=== PATIENT | male | born 1960 | race Caucasian/White ===

== ENCOUNTER 2021-05-23 08:44 | Outpatient (CLI) | payer OTHER, SELFPAY ==
[2021-05-23 09:42] LABS: Alanine Aminotransferase 25 U/L (4-50); Albumin Level 4.4 g/dL (3.5-5.1); Alkaline Phosphatase 100 U/L (38-126); Anion Gap 8 mmol/L (8-16); Aspartate Amino Transferase 26 U/L (17-59); Bilirubin,Total 1.6 mg/dL (0.2-1.3); Blood Urea Nitrogen 16 mg/dL (9-20); Calcium 9.5 mg/dL (8.4-10.2); Carbon Dioxide 29 mmol/L (22-30); Chloride 104 mmol/L (98-107); Cholesterol 165 mg/dL (0-200); Estimated Glomerular Filt Rate 56; Glucose 114 mg/dL (75-110); HDL Direct 51 mg/dL; Potassium 4.2 mmol/L (3.4-5.0); Sodium 141 mmol/L (137-145); Triglycerides 85 mg/dL (<150)
[2021-05-23 09:53] LABS: LDL Cholesterol Direct 79 mg/dL
== END 2021-05-23 08:45 | disposition home or self-care (01) ==
LOC: ANHLAB 08:47
PROVIDERS: PCP Family Medicine; Visit Provider Family Medicine
DX: E78.2 Mixed hyperlipidemia (principal); I10 Essential (primary) hypertension
CPT/HCPCS: 36415; 80053; 80061

== ENCOUNTER → 2021-08-21 07:49 | Outpatient (CLI) | payer OTHER, SELFPAY ==
--- NOTE | ~2021-08-21 | MR_ITS ---
EXAMINATION: MR knee RT wo con DATE: 08/21/2021 08:38 INDICATION: Right knee pain, swelling and weakness TECHNIQUE: Magnetic resonance imaging (MRI) of the right knee was performed without intravenous contr ast. Sequences included coronal PD-weighted FSE, coronal PD-weighted FS FSE, sagittal T2-weighted FS E, sagittal PD-weighted FS FSE and axial PD weighted fat saturated FSE. COMPARISON: Radiographs dated 06/26/2021 FINDINGS: Medial compartment: Longitudinal horizontal tear extending to the inferior articular surface of the posterior horn and po sterior body of the medial meniscus. Articular cartilage is normal. Lateral compartment: Radial tear near the posterior root of the lateral meniscus. There is an intact posterior meniscal fe moral ligament of [place]. There is deep chondral ulceration along the posterior aspect of the later al tibial plateau with mild subarticular cystic change and edema posterior medially. Deep chondral fi ssuring without degenerative subchondral changes at the central aspect of the lateral tibial plateau and anterior weightbearing medial femoral condyle. There are small flat central subchondral osteophyt es at the site of full/near full-thickness chondral ulceration at the central weightbearing lateral f emoral condyle as well as along the posterior margin of the lateral femoral condyle. Patellofemoral compartment: Deep chondral ulceration and fissuring with underlying cortical irregularity at the medial patellar f acet, with tiny focus of subarticular edema at the apical ridge and without degenerative subchondral changes at the lateral facet. Extensive chondral ulceration at the trochlear, emplaces full/near full -thickness with small central subchondral osteophytes at the trochlear groove and medial trochlea wit h subarticular edema at the medial aspect of the lateral trochlea. Ligaments and tendons: Anterior and posterior cruciate ligaments are normal. The medial collateral ligament and fibular garrick ateral ligament complex are normal. Moderate-sized enthesophyte and mild tendinopathy at the patellar insertion of the distal quadriceps tendon. Minimal tendinopathy at the proximal and distal patellar tendon. The visualized medial and lateral hamstring tendons as well as the iliotibial band are normal . Fluid: Physiologic amount of fluid in the joint space. No loose osteochondral bodies identified. Osseous/other: Bone alignment is normal. No fracture or pathologic marrow replacing process. IMPRESSION: 1. Medial and lateral meniscal tears. 2. 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 3. Mild distal quadriceps and minimal patellar tendinopathy. Reviewed, dictated and finalized at location B. IMPRESSION: 1. Medial and lateral meniscal tears. 2. 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 3. Mild distal quadriceps and minimal patellar tendinopathy.
== END ==
PROVIDERS: Visit Provider Orthopaedic Surgery
DX: S83.241A Other tear of medial meniscus, current injury, right knee, initial encounter (principal); S83.281A Other tear of lateral meniscus, current injury, right knee, initial encounter; M17.11 Unilateral primary osteoarthritis, right knee; M22.41 Chondromalacia patellae, right knee
CPT/HCPCS: 73721

== ENCOUNTER 2021-09-26 12:32 | Outpatient (CLI) | payer OTHER, SELFPAY ==
--- NOTE | 2021-09-26 12:45 | ECG_ITS ---
Measurements Intervals [place] Rate: 72 P: 24 OH: 181 QRS: -28 QRSD: 97 T: 23 QT: 389 QTc: 428 Interpretive Statements SINUS RHYTHM INCOMPLETE RIGHT BUNDLE BRANCH BLOCK DELAYED PRECORDIAL R/S TRANSITION LOW QRS VOLTAGE IN PRECORDIAL LEADS BASELINE ARTIFACT- I, II, AVR BORDERLINE ECG Electronically Signed On 09-26-2021 19:41:11 [employer]PER[employer] by Aryan Quezada D.O.
== END 2021-09-26 12:33 | disposition home or self-care (01) ==
LOC: ANHSURGERY 12:37
PROVIDERS: PCP Hospitalist; Visit Provider Orthopaedic Surgery
DX: Z01.818 Encounter for other preprocedural examination (principal); I10 Essential (primary) hypertension; I45.10 Unspecified right bundle-branch block
CPT/HCPCS: 93005

== ENCOUNTER 2021-09-27 02:20 | Day surgery (SDC) | payer OTHER, SELFPAY ==
[2021-09-25 09:24] VITALS: BMI 30.5
--- NOTE | 2021-09-25 09:41 | PC.NURSE ---
Report to the Outpatient Waiting Room, entrance under the green pavilion located off [facility], at time 11:00 on date 10/06/21. OR Time: 1:00. - You and your visitor will be asked a series of questions to screen for COVID 19 for your protection. - A mask is required within the hospital. - Only one visitor is allowed at this time. Patient visitors will be guided where to wait when not with patient. Preoperative COVID Testing Requirements: No COVID Test needed if: (proof is required; if not received patient will have Rapid Test prior to entry) - Patient has received COVID Vaccine at least 14 days prior to procedure date or - Patient has positive COVID test result within last 90 days of surgery date. COVID Test needed if above criteria is not met If not COVID vaccinated a COVID test must be conducted within 72 hours of surgery and patient is asked to isolate self from time of testing until procedure. You will go to the [facility] for your COVID testing. The [facility] site is located at the corner of [address] [facility]. You will only be called if COVID results are positive and your surgeon may reschedule your elective surgery date. Patients may have clear liquids (water, carbonated beverages, clear teas, apple juice) until 3 hours prior to surgery with a maximum of 20 ounces. - No food from midnight until time of surgery - Infants may have breast milk until 4 hours before surgery, infant formula 6 hours prior to surgery. - Children will be allowed to drink immediately following surgery. If applicable, please bring a bottle or sippy cup to assist with drinking. Juice, water, soda, and popsicles are readily available. For infants on formula, please bring formula the day of surgery. Pacifiers are allowed. Take the following medications with a SIP of water the morning of surgery: DOXYCYCLINE Medications to discontinue per physician: VITAMINS/SUPPLEMENTS Date to take last dose: 3 DAYS PRE-OP Please no make-up, nail monegasque, hairspray, perfume, deodorant, or body powder the day of surgery. No jewelry (including any body piercings) or valuables the day of surgery, leave them at home. Please take a shower or bath the night before, or the morning of, surgery with an antibacterial soap. Wear comfortable, loose fitting clothing. Children are encouraged to wear pajamas. - Jewelry must be removed prior to entering the operating room. Rings and piercings that are not removed may be cut off. - The hospital will not accept responsibility for valuables. - Please leave all valuables, including medications, at home the day of surgery. If you are going home after surgery, a licensed city route driver must drive you home. - NO public transportation without another adult. - We recommend that an adult stay with you for 24 hours following discharge. - We also recommend that you do not drive, make important decision, drink alcoholic beverages, or take any drugs that were not prescribed by your health care provider for at least 24 hours after your discharge time. For Pediatric surgeries, we recommend two adults accompany the child home (only one inside the building at this time). Follow any additional instructions given to you from your surgeon. Telephone instructions given to LIZBETH HOWELL and asked if any additional questions and then verbalized understanding. Patient advised to call surgeon office or pre surgery nurse liaison [phone] if any additional questions.
[2021-09-27] VITALS (10 sets, daily range): BP systolic 109–137; BP diastolic 67–84; PULSE 58–73; RESP 13–16; TEMP 36.9–37; O2SAT 96–99
--- NOTE | 2021-09-27 07:17 | WPDHPUPDATE1 ---
History and Physical Update Update Date/Time: 09/27/21 07:17 History and Physical has been reviewed, including an updated exam of the patient. There are NO changes in the patient's condition. Risks, benefits, and alternatives have been discussed and questions answered. Patient agrees to proceed with procedure.
[2021-09-27] MEDS: ACETAMINOPHEN 500 MG TABLET 1000 MG PO (11:31)
[2021-09-27] MEDS: LACTATED RINGERS 1,000 ML 30 ML IV CONT (11:32)
[2021-09-27] MEDS: KETOROLAC 15 MG/ML VIAL (*BKC) IV PUSH (11:32)
--- NOTE | 2021-09-27 12:07 | P.PNAN_ITS ---
Anes - Initial Pre Proc Eval Procedure: Operation Date: 09/27/21 13:00 Proposed Procedures p Right Knee Arthroscopic Partial Medial and Lateral Meniscectomy - Twan Mason MD Date/Time: 09/27/21 12:07 Surgeon: Twan Mason MD Pre Op Diagnosis: right knee lateral and medial meniscus tear Patient Data Age: 61 Gender: M Height: 1.78 m Weight: 96 kg Last Vital Signs Temp 36.9 C 09/27/21 11:39 Pulse 73 09/27/21 11:39 Resp 16 09/27/21 11:39 BP 137/74 09/27/21 11:39 Pulse Ox 98 09/27/21 11:39 Allergies Allergy/AdvReac Type Severity Reaction Status Date / Time No Known Allergies Allergy Verified 09/27/21 11:00 Home Medications Medication Instructions Recorded Confirmed Type losartan 50 mg tablet 50 mg PO DAILY #90 tablet 05/21/21 09/27/21 Rx doxycycline hyclate 100 mg tablet 10 mg PO DAILY 06/05/21 09/27/21 History multivitamin 1 tablet PO DAILY 09/25/21 09/27/21 History Patient hx anesthesia problems: none Family hx anesthesia problems: none Results Review: All pre-operative results and documents have been reviewed as part of the pre-operative evaluation. [facility] Past Medical History Medical History Benign essential HTN Cataract Elevated BP without diagnosis of hypertension Mixed hyperlipidemia Multinodular goiter OAB (overactive bladder) Surgical History Surgical History History of cataract extraction (~03/29/20) History of cataract extraction (~01/26/20) History of tonsillectomy Family History Family History Mother Hypertension Family history of elevated blood lipids Father Hypertension Family history of elevated blood lipids Family history of diabetes mellitus in first degree relative Social History Social History Social History: single Smoking status: Never smoker Second hand tobacco smoke exposure: No Alcohol intake: never Substance use: never Substance use type: does not use Living arrangements: alone Gender identity (if verbalized by the patient): Male Sexual Orientation (if Verbalized by the Patient): Straight or Heterosexual Spiritual care concerns: No Anes - Eval Final PreProcedure Day of Procedure 09/27/21 12:07 Patient weight: overweight Heart: regular rate and rhythm Lungs: clear to auscultation Airway: Mallampati scale class II Neurological: alert and oriented Last oral intake: >/= 8 hours ASA classification: II Emergent: no Anesthetic plan: proceed Anesthesia type and monitoring: general LMA and standard monitoring Results Review: All pre-operative results and documents have been reviewed as part of the pre-operative evaluation. Informed Consent: The patient's anesthetic plan and its attendant risks and benefits were discussed with the patient/family/POA. Questions were solicited and answers provided to the satisfaction of the patient/family/POA.
[2021-09-27] MEDS: ceFAZolin 2 GM/D5W 50 ML 2 GM/50 ML BAG IVPB (12:56)
[2021-09-27] MEDS: BUPIVACAINE HCL 0.5% PF 30 ML VIAL INFILTRATE (13:22)
--- NOTE | 2021-09-27 16:56 | P.OP_ITS ---
Procedure Note - Detailed Date of Procedure 09/28/21 Pre-op Diagnosis right knee lateral and medial meniscus tear Post-op Diagnosis same Procedure Performed Arthroscopic partial medial and lateral meniscectomy Surgeon Twan Mason MD Anesthesia general Findings Medial femur chondromalacia grade [], medial tibia grade []. Lateral femur chondromalacia grade [], lateral tibia grade []. Patellar grade [], trochlea grade []. Description of Procedure The patient was identified and the surgical site confirmed and signed in the preoperative holding area. Antibiotics were started per protocol. She was brought to the operative room and transferred to the OR table. A general anesthetic was administered. Supine position with the operative lower extremity position in the leg torres after placement of a well padded tourniquet. The leg support was lowered and the contralateral limb was supported with a soft bolster. The knee was prepped and draped in the usual sterile fashion. A time- out was performed. The portal sites were marked and infiltrated with 0.5% Marcaine 20 mL. The limb was exsanguinated and the tourniquet inflated to 300 mL Hg. Standard inferolateral and inferomedial portals were established. Inflow was obtained with the saline pump. The camera was introduced. Diagnostic inspection of the joint was accomplished. The menisci were debrided with the arthroscopic shaver and punches until stable. The arthroscopic instruments were removed. The tourniquet released and wounds closed with subcutaneous 4-0 Monocryl absorbable suture. Steri strips and a sterile dressing were applied. A light elastic wrap was placed. The patient was extubated and brought to the recovery room in stable condition. Estimated Blood Loss -5.0 Drains No Complications No immediate complications Condition stable Disposition PACU
== END 2021-09-27 15:31 | disposition home or self-care (01) ==
PROVIDERS: PCP Hospitalist; Visit Provider Orthopaedic Surgery
PROC: (CPT 29870; principal; 2021-09-27 13:00)
DX: S83.241A Other tear of medial meniscus, current injury, right knee, initial encounter (principal); S83.281A Other tear of lateral meniscus, current injury, right knee, initial encounter; W19.XXXA Unspecified fall, initial encounter; M94.261 Chondromalacia, right knee; I10 Essential (primary) hypertension; E78.2 Mixed hyperlipidemia; E04.2 Nontoxic multinodular goiter; N32.81 Overactive bladder
CPT/HCPCS: 29880; 93005; A9270; J0690; J1100; J1885; J2250; J2405; J2704; J3010; J7120